=== PATIENT | female | born 1985 | race Hispanic/Latino ===

== ENCOUNTER 2023-02-14 00:24 | Emergency (ER) | payer SELFPAY ==
--- OUTSIDE RECORDS SUMMARY | 2023-02-14 00:29 | XMS REPORT | Continuity of Care Document ---
:[address] [facility] t Address [address] [facility]. [address] [place] [address] Care Team Providers Name Role Phone Pcp, Patient Does Not Have A Primary Care Physician [phone] LEONARD NAIDU Attending Clinician Unavailable Leonard Naidu MD Attending Clinician BRAD Attending Clinician Unavailable DEBBI SULTANA Attending Clinician Unavailable Debbi Michael Attending Clinician Doctor Unassigned, [place] Attending Clinician Unavailable Pcp, Patient Does Not Have A Attending Clinician [phone] Marianela Green RN Attending Clinician Unavailable True Onofre Attending Clinician TRUE RAMOS Attending Clinician Unavailable Raza Attending Clinician Unavailable BRAD Admitting Clinician Unavailable DEBBI SULTANA Admitting Clinician Unavailable Raza Admitting Clinician Unavailable Payers Payer Name Policy Type Policy Number Effective Date Expiration Date Matthias restrepo OOHLALA Mobile [id number] 2021 NON-CONTRACT 00:00:00 GENERIC [employer] - HEALTHGRAM [id number] 1989 (PPO) 00:00:00 [facility] [id number] 2019 NON-CONTRACT 00:00:00 Problems Condition Condition Condition Status Onset Resolution Last Treating Co mments Source Name Details Category Date Date Treatment Clinician Date 21 weeks 21 weeks Disease Active 2015-08 Unive rs gestation gestation 0-28 ity of of of 00:00: [place] 00 Medi vito Branch Vaginal Vaginal Disease Active 2015-08 Univers bleeding bleeding 0-28 ity of in in 00:00: [place] , , 00 Me dical second second Branch trimester trimester Cramping Cramping Disease Active 2015-08 Unive rs complicati complicati 0-28 it y of ng ng 00:00: [place] , , 00 Me dical antepartum antepartum Br anch Allergies, Adverse Reactions, Alerts Allergy Allergy Status Severity Reaction(s) Onset Inactive Treating Comm ents Source Name Type Date Date Clinician NO KNOWN Drug Active Univers ALLERGIE Class ity of S [facility] Albutero Allergy Active Severe Angioedema Mat matthias bolden to da substanc [facility] Social History Social Habit Start Date Stop Date Quantity Comments Source Exposure to Not sure [facility] SARS-CoV-2 (event) Medica l Branch Sex Assigned At [birth year] [facility] 00:00:00 00:00:00 Medical Branch Smoking Status Start Date Stop Date Source Never Smoker Diane [facility] Tobacco smoking consumption [facility] Medical unknown Branch Medications Ordered Filled Start Stop Current Ordering Indication Dosage Frequency Signature Comments Components Source Medication Medication Date Date Medication? Clinician (SIG) Name Name iopamidol 2022- No [id number] 75mL 75 mL, U nivers (ISOVUE 02-12 Intravenou ity o f 370-500 mL) 03:45: 02:53 s, ONCE, 1 [place] injection 00 :00 dose, On Medica l 75 mL Thu02/11/23 Branch at 2245, Routine NaCl 0.9% 2022- No 1000mL at 999 Uni vers (NS) bolus 02-12 mL/hr, ity of infusion 02:45: 03:49 1,000 mL, [place] as 1,000 mL 00 :00 IV Medical Piggyback, Branch ONCE, 1 dose, On Thu02/11/23 at 2145, STAT ketorolac 2022- No 30mg 30 mg, Unive rs (TORADOL) 02-12 Slow IV ity of injection 02:45: 03:14 Push, [place] 30 mg 00 :00 ONCE, 1 Medical dose, On Branch Thu02/11/23 at 2145 ondansetron No 4mg 4 mg, Slow Univers (ZOFRAN 02-12 IV Push, ity of (PF)) 02:00: 03:14 ONCE, 1 [place] injection 4 00 :00 dose, On Medi vito mg Thu02/11/23 Branch at 2100, RYAN morpHINE (4 2022- No 4mg 4 mg, Slow Univers mg/mL) 02-12 IV Push, ity of injection 4 02:00: 03:16 [place]CE, 1 [place] mg 00 :[place] dose, On Thu02/11/23 Branch at 2100, STAT famotidine Yes [id number] 20mg Take 1 U nivers (PEPCID) 20 7-05 tablet by ity of mg tablet 00:00: mouth in s 00 the Medical morning Branch and 1 tablet in the evening. dicyclomine Yes [id number] 20mg Take 1 Univers 20 mg 7-05 tablet by ity of tablet 00:00: mouth 3 [place] 00 (three) Medical times Branch daily as needed for Abdominal pain. aspirin 2021- No 325mg 325 mg, Unive rs tablet 325 09-26-17 Oral, ity of mg 01:45: 00:50 ONCE, 1 [place] 00 :00 dose, On Medical Wed Branch 09/25/21 at 1945, STAT naproxen Yes [id number] 500mg Take 1 Un nitza (NAPROSYN) 2-16 tablet by ity of 500 mg 00:00: mouth 2 [place] tablet 00 (two) Medical times Branch daily with meals. naproxen 0 Yes [id number] 500mg Take 1 Un nitza (NAPROSYN) 2-16 tablet by ity of 500 mg 00:00: mouth 2 [place] tablet 00 (two) Medical times Branch daily with meals. iopamidol 2020-08- No [id number] 120mL 120 mL, Univers (ISOVUE 08-17 11-08 Intravenou ity o f 370-500 mL) 17:34: 17:34 s, ONCE, 1 [place] injection 00 :00 dose, On Medica l 120 mL [facility] 06/17/21 at 1145, Routine hyoscyamine 2020-08 No .125mg 0.125 mg, Univers sulfate 08-1708 Sublingual ity o f (LEVSIN/SL) 17:30: 16:28 , ONCE, 1 [place] sublingual 00 :00 dose, On Medic al tablet Mon Branch 0.125 mg 06/17/21 at 1130, Routine ondansetron 2020-08- No 4mg 4 mg, Slow Univers (ZOFRAN 08-17 IV Push, ity of (PF)) 17:30: 16:30 ONCE, 1 [place] injection 4 00 :00 dose, On Medi vito mg [facility] 06/17/21 at 1130, RYAN hyoscyamine 2020-08 Yes [id number] .125mg Take 1 Univers 0.125 mg 1-08 tablet by ity of tablet 00:00: mouth [place] 00 every 6 Medical (six) Branch hours as needed (abdominal pain). ondansetron 2020-08 Yes 4mg Take 1 Univers (ZOFRAN 1-08 tablet by ity of ODT) 4 mg 00:00: mouth [place] disintegrat 00 every 8 Medic al ing tablet (eight) Branch hours as needed for Nausea and Vomiting (N/V). esomeprazol 2020-08 Yes 20mg Take 20 mg Univers e (NEXIUM) 1-08 by mouth ity o f 20 mg 00:00: daily [place] capsule 00 before a Medical meal. Branch hyoscyamine 2020-08 Yes [id number] .125mg Take 1 Univers 0.125 mg 1-08 tablet by ity of tablet 00:00: mouth [place] 00 every 6 Medical (six) Branch hours as needed (abdominal pain). ondansetron 2020-08 Yes [id number] 4mg Take 1 Univers (ZOFRAN 1-08 tablet by ity of ODT) 4 mg 00:00: mouth [place] disintegrat 00 every 8 Medic al ing tablet (eight) Branch hours as needed for Nausea and Vomiting (N/V). esomeprazol 2020-08 Yes 20mg Take 20 mg Univers e (NEXIUM) 1-08 by mouth ity o f 20 mg 00:00: daily [place] capsule 00 before a Medical meal. Branch hyoscyamine 2020-08 Yes .125mg Take 1 Univers 0.125 mg 1-08 tablet by ity of tablet 00:00: mouth [place] 00 every 6 Medical (six) Branch hours as needed (abdominal pain). ondansetron 2020-08 Yes 4mg Take 1 Univers (ZOFRAN 1-08 tablet by ity of ODT) 4 mg 00:00: mouth [place] disintegrat 00 every 8 Medic al ing tablet (eight) Branch hours as needed for Nausea and Vomiting (N/V). esomeprazol 2020-08 Yes 20mg Take 20 mg Univers e (NEXIUM) 1-08 by mouth ity o f 20 mg 00:00: daily [place] capsule 00 before a Medical meal. Branch iohexol 2019-08- No 120mL 120 mL, Unive rs (OMNIPAQUE 0-30 10-31 Intravenou it y of 350 23:54: 00:00 s, ONCE, 1 [place] BULK-150 00 :00 dose, Fri Medica l mL) 06/08/20 Branch injection at 1900, 120 mL Routine pantoprazol 2019-08- No 40mg 40 mg, IV Univers e 0-30 10-30 Piggyback, ity of (PROTONIX) 23:30: 23:36 ONCE, 1 [place] as 40 mg in 00 :00 dose, Fri Medica l NaCl 0.9% 06/08/20 Branch (NS) 100 mL at 1830, MINI-BAG 100 mL maalox:diph 2019-08- No 15mL 15 mL, Uni vers enhydrAMINE 0-30 10-30 Oral, ity of :lidocaine 23:30: 23:21 ONCE, 1 [place] as 2 % viscous 00 :00 dose, Fri Med ical 1:1:1 06/08/20 Branch (FIRST-MOUT at 1830, [facility]) Routine oral suspension 15 mL NaCl 0.9% 2019-08- No 1000mL at 999 Uni vers (NS) bolus 0-30 10-31 mL/hr, ity of infusion 22:30: 00:16 1,000 mL, [place] as 1,000 mL 00 :00 IV Medical Infusion, Branch ONCE, 1 dose, 10/30/20 at 1730, RYAN pantoprazol 2019-08 2020- No [id number] 40mg Take 1 Univers e 0-30 11-30 tablet by ity of (PROTONIX) 00:00: 05:59 mouth [place] 40 mg EC 00 :00 daily for Medica l tablet 30 days. Branch pantoprazol 2019-08 2020- No [id number] 40mg Take 1 Univers e 0-30 11-30 tablet by ity of (PROTONIX) 00:00: 05:59 mouth [place] 40 mg EC 00 :00 daily for Medica l tablet 30 days. Branch pantoprazol 2019-08 2020- No [id number] 40mg Take 1 Univers e 0-30 11-30 tablet by ity of (PROTONIX) 00:00: 05:59 mouth [place] 40 mg EC 00 :00 daily for Medica l tablet 30 days. Branch azithromyci 2019-08 2020- No [id number] 500mg Take 1 Univers n 500 mg 0-30 11-07 tablet by ity o f tablet 00:00: 05:59 mouth [place] 00 :00 daily for Medical 7 days. Branch azithromyci 2019-08 2020- No [id number] 500mg Take 1 Univers n 500 mg 0-30 11-07 tablet by ity o f tablet 00:00: 05:59 mouth [place] 00 :00 daily for Medical 7 days. Branch azithromyci 2019-08 2020- No [id number] 500mg Take 1 Univers n 500 mg 0-30 11-07 tablet by ity o f tablet 00:00: 05:59 mouth [place] 00 :00 daily for Medical 7 days. Branch GLYBURIDE Yes 1 Tab Oral Un nitza 2.5 MG ORAL 7-22 QAM WITH ity of TAB 00:00: BREAKFAST [place] Medical Branch GLYBURIDE 2007- Yes 1 Tab Oral Un nitza 2.5 MG ORAL 7-22 QAM WITH ity of TAB 00:00: BREAKFAST [place] [facility] GLYBURIDE 2007- Yes 1 Tab Oral Un nitza 2.5 MG ORAL 7-22 QAM WITH ity of TAB 00:00: BREAKFAST Medical Branch GLYBURIDE 2007- Yes 1 Tab Oral Un nitza 2.5 MG ORAL 7-22 QAM WITH ity of TAB 00:00: BREAKFAST [place] [facility] GLYBURIDE Yes 1 Tab Oral Un nitza 2.5 MG ORAL 7-22 QAM WITH ity of TAB 00:00: BREAKFAST Medical Branch GLYBURIDE Yes 1 Tab Oral Un nitza 2.5 MG ORAL 7-22 QAM WITH ity of TAB 00:00: BREAKFAST Medical Branch GLYBURIDE Yes 1 Tab Oral Un nitza 2.5 MG ORAL 7-22 QAM WITH ity of TAB 00:00: BREAKFAST [facility] amoxicillin amoxicillin No 1capsul Q12H amoxicilli [place] 500 mg 500 mg e(s) n 500 mg da capsule capsule capsule [facility] p Take 1 Take 1 Take 1 al capsule capsule capsule Health every 12 every 12 every 12 Out reac hours by hours by hours by h oral route oral route oral route Program for 10 for 10 for 10 days. days. days. Vital Signs Vital Name Observation Time Observation Value Comments Source Systolic blood 2023-02-12 03:12:00 134 mm[Hg] [facility]iver [facility] Diastolic blood 2023-02-12 03:12:00 81 [facility]Hg[facility] 2023-02-12 03:12:00 52 /min [facility] Oxygen saturation in 2023-02-12 03:12:00 100 /min [facility] Arterial blood by [facility] Pulse oximetry [place] Respiratory rate 2023-02-12 01:30:00 16 /min [facility] Body temperature 2023-02-11 23:33:00 36.78 [facility] Body height 2023-02-11 23:33:00 149.9 cm [facility] Body weight 2023-02-11 23:33:00 66.225 kg [facility] BMI 2023-02-11 23:33:00 29.49 kg/m2 [facility] Systolic blood 2021-09-26 02:00:00 129 mm[Hg] [facility]iver [facility] Diastolic blood 2021-09-26 02:00:00 94 mm[Hg] Unive rs[facility] Heart rate 2021-09-26 02:00:00 80 /min [facility] [place] [facility] Oxygen saturation in 2021-09-26 02:00:00 92 /min University of Arterial blood by [employer] Pulse oximetry Branch Respiratory rate 2021-09-26 01:00:00 12 /min Univ [facility] [place] [facility] Body temperature 2021-09-26 00:27:00 36.78 [facility] [place] [facility] Body height 2021-09-26 00:27:00 149.9 cm [facility] [place] [facility] Body weight 2021-09-26 00:27:00 63.504 kg [facility] [place] [facility] BMI 2021-09-26 00:27:00 28.28 kg/m2 [facility] [place] [facility] Systolic blood 2021-06-17 18:37:38 122 mm[Hg] Univer sity of pressure [place] [facility] Diastolic blood 2021-06-17 18:37:38 66 mm[Hg] Unive rsity of pressure [place] [facility] Heart rate 2021-06-17 18:37:38 62 /min [facility] [place] [facility] Respiratory rate 2021-06-17 18:37:38 16 /min Univ [facility] [place] [facility] Oxygen saturation in 2021-06-17 18:37:38 100 /min University of Arterial blood by [employer] Pulse oximetry Branch Body temperature 2021-06-17 16:10:03 37.33 [place] [facility] [place] [facility] Body height 2021-06-17 15:56:00 149.9 cm [facility] [place] [facility] Body weight 2021-06-17 15:56:00 63.504 kg [facility] [place] [facility] BMI 2021-06-17 15:56:00 28.28 kg/m2 [facility] [place] [facility] Systolic blood 2020-06-09 01:31:00 146 mm[Hg] Univer sity of pressure [place] [facility] Diastolic blood 2020-06-09 01:31:00 88 mm[Hg] Unive rsity of pressure [place] [facility] Heart rate 2020-06-09 01:31:00 83 /min [facility] [place] [facility] Respiratory rate 2020-06-09 01:31:00 16 /min Univ [facility] [place] [facility] Oxygen saturation in 2020-06-09 01:31:00 97 /min University of Arterial blood by [facility] Pulse oximetry Branch Body temperature 2020-06-08 21:42:00 37.39 [facility] Body height 2020-06-08 21:42:00 149.9 cm [facility] Body weight 2020-06-08 21:42:00 69.4 kg [facility] BMI 2020-06-08 21:42:00 30.90 kg/m2 [facility] BP Diastolic 2019-10-19 00:00:00 76 mm[Hg] [place] [facility] Height 2019-10-19 00:00:00 59 [in_i] [place] [facility] BMI (Body Mass 2019-10-19 00:00:00 30.7 kg/m2 [facility] 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 METABOLIC PANEL 2023-02-12 01:20:00 Leonard Naidu [facility] ([id number]) [facility] CBC WITH DIFF 2023-02-12 01:20:00 Leonard Naidu [facility] URINALYSIS 2023-02-12 01:20:00 Leonard Naidu [facility] CONSENT/REFUSAL FOR 2023-02-11 23:34:41 Doctor Unassigned, No Un [facility] DIAGNOSIS AND Name [facility] Branch TREATMENT XR CHEST 1 VW 2021-09-26 00:59:30 Debbi Sultana [facility] POCT TEST 2021-09-26 00:55:00 Debbi Sultana [facility] TROPONIN I 2021-09-26 00:48:00 Debbi Sultana [place] [facility] COMP. METABOLIC PANEL 2021-09-26 00:48:00 Debbi Sultana [facility] ([id number]) Medical Branch CBC WITH DIFF 2021-09-26 00:48:00 Debbi Sultana [place] [facility] NOTICE OF PRIVACY 2021-09-26 00:16:46 Doctor Unassigned, No [facility] CONSENT/REFUSAL FOR 2021-09-26 00:16:29 Doctor Unassigned, No Un [facility] [place] DIAGNOSIS AND [facility] TREATMENT CT ABDOMEN PELVIS W 2021-06-17 16:40:44 Debbi Sultana [facility] CONTRAST [facility] POCT TEST 2021-06-17 16:01:00 Noemi Wasserman [facility] LIPASE 2021-06-17 15:58:00 Noemi Wasserman [facility] COMP. METABOLIC PANEL 2021-06-17 15:58:00 Noemi Wasserman [facility] ([id number]) Medical Branch CBC WITH DIFF 2021-06-17 15:58:00 Noemi Wasserman [facility] URINALYSIS 2021-06-17 15:58:00 Noemi Wasserman [facility] CONSENT/REFUSAL FOR 2021-06-17 15:48:05 Doctor Unassigned, No Un [facility] [place] DIAGNOSIS AND [facility] Medical Branch TREATMENT NOTICE OF PRIVACY 2021-06-17 15:47:30 Doctor Unassigned, No [facility]EL[facility] W 2020-06-08 23:57:50 True Ramos [facility] CONTRAST [facility] POCT TEST 2020-06-08 23:22:00 True Ramos [facility] URINALYSIS 2020-06-08 23:17:00 True Ramos [facility] LIPASE 2020-06-08 23:10:00 True Ramos [facility] COMP. METABOLIC PANEL 2020-06-08 23:10:00 True Ramos [facility] [place] ([id number] CBC WITH DIFF 2020-06-08 23:10:00 True Ramos [facility] Plan of Care Planned Activity Planned Date Details Comments Source Diagnostic Test 2019-10-19 [facility] [place] [facility] Pending 00:00:00 A, throat [code = Health Out reach rapid strep group Program A, throat] Encounters Start End Encounter Admission Attending Care Care Encounter Source Date/Time Date/Time Type Type Clinicians Facility Department ID 2023-02-11 2023-02-11 Emergency X [facility] ERT [id number] Univers 18:35:00 22:58:00 LEONARD [facility] 2023-02-11 2023-02-11 [facility] [id number] Univers 18:35:00 22:58:00 Leonard STEVEN [id number] i ty [facility] [id number] [facility] [id number] [address] 2022-11-27 2022-11-27 Out[facility] 782 [place] 00:00:00 00:00:00 HANA 0420 [facility] 2021-09-25 2021-09-25 Emergency [facility] [id number] Univers 18:30:00 20:37:[facility] 2021-09-25 2021-09-25 [facility] [id number] Univers 18:30:00 20:37:00 Debbi STEVEN [id number] i ty of [place] 4.2.7.2.686 [facility] [id number] [address] 2021-06-17 2021-06-17 Emergency [facility] ERT [id number] Univers 10:09:00 13:37:00 DEBBI [facility] 2021-06-17 2021-06-17 Emergency [facility] [id number] Univers 10:09:00 13:37:00 Debbi ADAMSJESIKA 350.1.13.10 i ty of [place] 4.2.7.2.686 [facility] [id number] [address] 2021-06-17 2021-06-17 Orders Doctor MIKA [id number] Univers 00:00:00 00:00:00 Only Unassigned, [place] 350.1.13.10 ity of [place] [facility] 4.2.7.2.686 [place] as [id number] [address] 2020-06-11 2020-06-11 Telephone Pcp, MIKA [id number] Univers 00:00:00 00:00:00 Patient [place] 350.1.13.10 it y of Does Not HOSPITAL 4[place]7.2.686 [place] [id number] [address] 2020-06-10 2020-06-10 Letter MIKA Green [id number] Univers 00:00:00 00:00:00 (Out) Marianela Ng [place] 350.1.13.10 it y of HOSPITAL 4.2.7.2.686 [place] as [id number] [address] 2020-06-08 2020-06-08 Emergency [facility] [id number] Univers 16:44:00 20:33:00 True Steven 350.1.13.10 ity of [place] 4.2.7.2.686 [facility] [id number] [address] 2020-06-08 2020-06-08 Emergency X [facility] ERT [id number] Univers 16:44:00 16:44:00 TRUE francois of [facility] 2019-10-19 2019-10-19 Outpatient Lauren REYES [id number] [place] 08:24:00 08:24:00 dquist 0311 da [facility] 2019-10-19 2019-10-19 Dilshad REYES [place] - [id number] [place] 00:00:00 00:00:00 Obsarah, [place] MEDICAL INSURANCE COLLECTOR: 1700 [facility] WIKADY [place], [facility] [phone] h , Ph. Program Results Test Description Test Time Test Comments Results Result Comments Source TEST, SERUM 2023-02-12 02:17:59 Test Item Value Reference Range Interpretation Comme nts PREG SERUM (test code = 5763874287) Negative ALE (test code = ALE) Less than 10 IU/L. ?If low titer or ectopic is suspected, resubmit specimen in 48-72 hours. [facility] [place] [facility]. METABOLIC PANEL (12853)2023-02-12 02:04:08 Test Item Value Reference Range Interpretation Comments NA (test code = 141 mmol/L 135-145 8872202633) K (test code = 3.6 mmol/L 3.5-5.0 5153868429) CL (test code = 101 mmol/L 98-108 6098293967) CO2 TOTAL (test code = 31 mmol/L 23-31 2802420054) AGAP (test code = 9 2-16 9281039249) BUN (test code = 7 mg/dL 7-23 1891461374) GLUCOSE (test code = 155 mg/dL 70-110 H 2621987125) CREATININE (test code = 0.64 mg/dL 0.50-1.04 8733842467) TOTAL BILI (test code = 1.0 mg/dL 0.1-1.8 0786282238) CALCIUM (test code = 9.1 mg/dL 8.6-10.6 4282443259) T PROTEIN (test code = 7.6 g/dL 6.3-8.2 6171606904) ALBUMIN (test code = 4.3 g/dL 3.5-5.0 4565783981) ALK PHOS (test code = 85 U/L 34-122 2849507387) ALTv (test code = 29 U/L 5-35 1742-6) AST(SGOT) (test code = 22 U/L 13-40 1074148234) eGFR (test code = 104.4 mL/min/1.73m2 7556201608) ALE (test code = ALE) Association of Glomerular Filtration Rate (GFR) and Staging of Kidney Disease* + --+ --+ ------+| GFR (mL/min/1.73 m2) ?| With Kidney Damage ?| ?Without Kidney Damage+ --------+ --------+ +| ?>90 ?| ?Stage one ?| ? Normal ?+ ---+ ---+ -------+| ?60-89 ?| ?Stage two ?| ? Decreased GFR ? + --+ --+ ------+| ?30-59 ?| ?Stage three ?| ? Stage three ? + --+ --+ ------+| ?15-29 ?| ?Stage four ? | ? Stage four ?+ ---+ ---+ -------+| ?<15 (or dialysis) ? ?| ?Stage five ? | ? Stage five ?+ ---+ ---+ -------+ *Each stage assumes the associated GFR level has been in effect for at least three months. ?Stages 1 to 5, with or without kidney disease, indicate chronic kidney disease. Notes: Determination of stages one and two (with eGFR >59mL/min/1.73 m2) requires estimation of kidney damage for at least three months as defined by structural or functional abnormalities of the kidney, manifested by either:Pathological abnormalities or Markers of kidney damage (including abnormalities in the composition of the blood or urine or abnormalities in imaging tests). Lab Interpretation Abnormal (test code = 50738-6) [facility]:03[facility]48 Test Item Value Reference Range Interpretation Comments LIPASE (test code = 8827071360) 136 U/L 0-220 Lab Interpretation (test code = Normal 80332-7) [facility] WITH [id number] 01:51:09 Test Item Value Reference Range Interpretation Comments WBC (test code = 10.21 See_Comment [Automated 7479-2) message] The sy stem which generated this result transmitted reference range : 4.30 - 11.10 10*3/?L. The reference range was not used to interpret this result as normal/abnormal . RBC (test code = 4.30 See_Comment [Automated 222-5) message] The sy stem which generated this result transmitted reference range : 3.93 - 5.25 10*6/?L. The reference range was not used to interpret this result as normal/abnormal . HGB (test code = 13.1 g/dL 11.6-15.0 718-7) HCT (test code = 39.2 % 35.7-45.2 4544-3) MCV (test code = 91.2 fL 80.6-95.5 787-2) MCH (test code = 30.5 pg 25.9-32.8 785-6) MCHC (test code = 33.4 g/dL 31.6-35.1 786-4) RDW-SD (test code = 45.1 fL 39.0-49.9 23972-5) RDW-CV (test code = 13.6 % 12.0-15.5 788-0) PLT (test code = 378 See_Comment H [Automated 777-3) message] The sy stem which generated this result transmitted reference range : 166 - 358 10*3/ ?L. The reference r anuradha was not used to interpret this result as normal/abnormal . MPV (test code = 10.3 fL 9.5-12.9 98716-3) NRBC/100 WBC (test 0.0 See_Comment [Automat ed code = 2050154977) message] The system which generated this result transmitted reference range : 0.0 - 10.0 /100 WBCs. The refer ence range was not u sed to interpret th is result as normal/abnormal . NRBC x10^3 (test code See_Comment [Auto mated = 2953966079) message] The s ystem which generated this result transmitted reference range : 10*3/?L. The reference range was not used to interpret this result as normal/abnormal . GRAN MAT (NEUT) % 59.8 % (test code = 770-8) IMM GRAN % (test code 0.50 % = 6415421281) LYMPH % (test code = 29.5 % 736-9) MONO % (test code = 7.1 % 5905-5) EOS % (test code = 2.5 % 713-8) BASO % (test code = 0.6 % 706-2) GRAN MAT x10^3(ANC) 6.11 10*3/uL 1.88-7.09 (test code = 1044671866) IMM GRAN x10^3 (test 0.05 10*3/uL 0.00-0.06 code = 8595656346) LYMPH x10^3 (test code 3.01 10*3/uL 1.32-3.29 = 731-0) MONO x10^3 (test code 0.72 10*3/uL 0.33-0.92 = 742-7) EOS x10^3 (test code = 0.26 10*3/uL 0.03-0.39 711-2) BASO x10^3 (test code 0.06 10*3/uL 0.01-0.07 = 704-7) Lab Interpretation Abnormal (test code = 81249-7) [facility] [id number] 01:34:48 Test Item Value Reference Interpretation Comments Range TROPONIN I (test 0.001 ng/mL See_Comment [Automated code = 8327591622) message] The system which generated this result transmitted reference range : <=0.034. The reference range was not used to interpret this result as normal/abnormal . ALE (test code = Reference (Normal) ALE) Range (defined by the 99th percentile reference limit): <= 0.034 ng/mL Note: Cardiac troponin begins to rise 3-4 hours after the onset of ischemia. Repeat in 4-6 hours if the sample was drawn within 3-4 hours of the onset of the symptom and found normal. Diagnosis of myocardial injury is made with acute changes in cTn concentrations with at least one serial sample above the 99th percentile upper reference limit (URL), taken together with the patient's clinical presentation. Biotin has been reported to cause a negative bias, interpret results relative to patient's use of biotin. Lab Interpretation Normal (test code = 00787-0) [facility]. METABOLIC PANEL ([id number])2021-09-26 01:24:24 Test Item Value Reference Range Interpretation Comments NA (test code = 143 mmol/L 135-145 4167251539) K (test code = 4.2 mmol/L 3.5-5.0 0861703659) CL (test code = 109 mmol/L 98-108 H 7818045715) CO2 TOTAL (test code = 28 mmol/L 23-31 3266536385) AGAP (test code = 2-16 4824141357) BUN (test code = 17 mg/dL 7-23 6421069834) GLUCOSE (test code = 140 mg/dL 70-110 H 2452813801) CREATININE (test code = 0.89 mg/dL 0.50-1.04 8886841343) TOTAL BILI (test code = 0.6 mg/dL 0.1-1.8 7224327016) CALCIUM (test code = 9.0 mg/dL 8.6-10.6 2603101238) T PROTEIN (test code = 8.1 g/dL 6.3-8.2 3883776207) ALBUMIN (test code = 4.7 g/dL 3.5-5.0 6787614372) ALK PHOS (test code = 82 U/L 34-122 9568794544) ALTv (test code = 20 U/L 5-35 1742-6) AST(SGOT) (test code = 21 U/L 13-40 3685381475) eGFR (test code = mL/min/1.73m2 8611133258) ALE (test code = ALE) Association of Glomerular Filtration Rate (GFR) and Staging of Kidney Disease* + --+ --+ ------+| GFR (mL/min/1.73 m2) ?| With Kidney Damage ?| ?Without Kidney Damage+ --------+ --------+ +| ?>90 ?| ?Stage one ?| ? Normal ?+ ---+ ---+ -------+| ?60-89 ?| ?Stage two ?| ? Decreased GFR ? + --+ --+ ------+| ?30-59 ?| ?Stage three ?| ? Stage three ? + --+ --+ ------+| ?15-29 ?| ?Stage four ? | ? Stage four ?+ ---+ ---+ -------+| ?<15 (or dialysis) ? ?| ?Stage five ? | ? Stage five ?+ ---+ ---+ -------+ *Each stage assumes the associated GFR level has been in effect for at least three months. ?Stages 1 to 5, with or without kidney disease, indicate chronic kidney disease. Notes: Determination of stages one and two (with eGFR >59mL/min/1.73 m2) requires estimation of kidney damage for at least three months as defined by structural or functional abnormalities of the kidney, manifested by either:Pathological abnormalities or Markers of kidney damage (including abnormalities in the composition of the blood or urine or abnormalities in imaging tests). Lab Interpretation Abnormal (test code = 08162-0) [facility] WITH [id number] 00:55:37 Test Item Value Reference Range Interpretation Comments WBC (test code = See_Comment [Automated 9090-2) message] The sy stem which generated this result transmitted reference range : 4.30 - 11.10 10*3/?L. The reference range was not used to interpret this result as normal/abnormal . RBC (test code = See_Comment [Automated 789-8) message] The sy stem which generated this result transmitted reference range : 3.93 - 5.25 10*6/?L. The reference range was not used to interpret this result as normal/abnormal . HGB (test code = 13.0 g/dL 11.6-15.0 718-7) HCT (test code = 39.0 % 35.7-45.2 4544-3) MCV (test code = 90.9 fL 80.6-95.5 787-2) MCH (test code = 30.3 pg 25.9-32.8 785-6) MCHC (test code = 33.3 g/dL 31.6-35.1 786-4) RDW-SD (test code = 45.5 fL 39.0-49.9 15176-4) RDW-CV (test code = 13.5 % 12.0-15.5 788-0) PLT (test code = See_Comment H [Automated 777-3) message] The sy stem which generated this result transmitted reference range : 166 - 358 10*3/ ?L. The reference r anuradha was not used to interpret this result as normal/abnormal . MPV (test code = 10.4 fL 9.5-12.9 98042-9) NRBC/100 WBC (test See_Comment [Automat ed code = 3693583785) message] The system which generated this result transmitted reference range : 0.0 - 10.0 /100 WBCs. The refer ence range was not u sed to interpret th is result as normal/abnormal . NRBC x10^3 (test code <0.01 See_Comment [Auto mated = 5938199394) message] The s ystem which generated this result transmitted reference range : 10*3/?L. The reference range was not used to interpret this result as normal/abnormal . GRAN MAT (NEUT) % 63.2 % (test code = 770-8) IMM GRAN % (test code 0.40 % = 1118067788) LYMPH % (test code = 27.2 % 736-9) MONO % (test code = 6.6 % 5905-5) EOS % (test code = 2.2 % 713-8) BASO % (test code = 0.4 % 706-2) GRAN MAT x10^3(ANC) 6.14 10*3/uL 1.88-7.09 (test code = 0081188318) IMM GRAN x10^3 (test 0.04 10*3/uL 0.00-0.06 code = 3130389379) LYMPH x10^3 (test code 2.64 10*3/uL 1.32-3.29 = 731-0) MONO x10^3 (test code 0.64 10*3/uL 0.33-0.92 = 742-7) EOS x10^3 (test code = 0.21 10*3/uL 0.03-0.39 711-2) BASO x10^3 (test code 0.04 10*3/uL 0.01-0.07 = 704-7) Lab Interpretation Abnormal (test code = 53014-3) [facility] [id number] 00:55:00 Test Item Value Reference Range Interpretation Comments POCT PREG (test code = 1605) negative On board controls acceptable with present C Line (test code = 3574) POCT PREG LOT # (test code = 3575) [id number] POCT PREG TEST DATE (test 10/07/2022 code = 3576) Lab Interpretation (test code = Normal 88869-2) [facility] HoustonComplete Metabolic [id number] 16:34:15 Test Item Value Reference Range Interpretation Comments NA (test code = 139 mmol/L 135-145 4540444831) K (test code = 4.1 mmol/L 3.5-5.0 1396407427) CL (test code = 106 mmol/L 98-108 9814908033) CO2 TOTAL (test code = 26 mmol/L 23-31 7553477724) AGAP (test code = 2-16 5275388789) BUN (test code = 15 mg/dL 7-23 7276395659) GLUCOSE (test code = 147 mg/dL 70-110 H 0467597034) CREATININE (test code = 0.74 mg/dL 0.50-1.04 4457632295) TOTAL BILI (test code = 0.6 mg/dL 0.1-1.2 9752512578) CALCIUM (test code = 9.5 mg/dL 8.6-10.6 8970802639) T PROTEIN (test code = 7.6 g/dL 6.3-8.2 2925489429) ALBUMIN (test code = 4.2 g/dL 3.5-5.0 3331945911) ALK PHOS (test code = 86 U/L 34-122 9826349632) ALTv (test code = 18 U/L 5-35 1742-6) AST(SGOT) (test code = 17 U/L 13-40 6877614282) eGFR (test code = mL/min/1.73m2 0077969531) ALE (test code = ALE) Association of Glomerular Filtration Rate (GFR) and Staging of Kidney Disease* + --+ --+ ------+| GFR (mL/min/1.73 m2) ?| With Kidney Damage ?| ?Without Kidney Damage+ --------+ --------+ +| ?>90 ?| ?Stage one ?| ? Normal ?+ ---+ ---+ -------+| ?60-89 ?| ?Stage two ?| ? Decreased GFR ? + --+ --+ ------+| ?30-59 ?| ?Stage three ?| ? Stage three ? + --+ --+ ------+| ?15-29 ?| ?Stage four ? | ? Stage four ?+ ---+ ---+ -------+| ?<15 (or dialysis) ? ?| ?Stage five ? | ? Stage five ?+ ---+ ---+ -------+ *Each stage assumes the associated GFR level has been in effect for at least three months. ?Stages 1 to 5, with or without kidney disease, indicate chronic kidney disease. Notes: Determination of stages one and two (with eGFR >59mL/min/1.73 m2) requires estimation of kidney damage for at least three months as defined by structural or functional abnormalities of the kidney, manifested by either:Pathological abnormalities or Markers of kidney damage (including abnormalities in the composition of the blood or urine or abnormalities in imaging tests). Lab Interpretation Abnormal (test code = 29060-3) [facility] HoustonLipase, [id number] 16:33:54 Test Item Value Reference Range Interpretation Comments LIPASE (test code = 5139636733) 135 U/L 0-220 Lab Interpretation (test code = Normal 71301-1) [facility] HoustonCBC with [id number] 16:20:36 Test Item Value Reference Range Interpretation Comments WBC (test code = See_Comment [Automated 4290-2) message] The sy stem which generated this result transmitted reference range : 4.30 - 11.10 10*3/?L. The reference range was not used to interpret this result as normal/abnormal . RBC (test code = See_Comment [Automated 319-8) message] The sy stem which generated this result transmitted reference range : 3.93 - 5.25 10*6/?L. The reference range was not used to interpret this result as normal/abnormal . HGB (test code = 13.0 g/dL 11.6-15.0 718-7) HCT (test code = 39.8 % 35.7-45.2 4544-3) MCV (test code = 92.6 fL 80.6-95.5 787-2) MCH (test code = 30.2 pg 25.9-32.8 785-6) MCHC (test code = 32.7 g/dL 31.6-35.1 786-4) RDW-SD (test code = 46.1 fL 39.0-49.9 23273-1) RDW-CV (test code = 13.5 % 12.0-15.5 788-0) PLT (test code = See_Comment H [Automated 507-3) message] The sy stem which generated this result transmitted reference range : 166 - 358 10*3/ ?L. The reference r anuradha was not used to interpret this result as normal/abnormal . MPV (test code = 10.5 fL 9.5-12.9 31676-7) NRBC/100 WBC (test See_Comment [Automat ed code = 2435386787) message] The system which generated this result transmitted reference range : 0.0 - 10.0 /100 WBCs. The refer ence range was not u sed to interpret th is result as normal/abnormal . NRBC x10^3 (test code <0.01 See_Comment [Auto mated = 6903589430) message] The s ystem which generated this result transmitted reference range : 10*3/?L. The reference range was not used to interpret this result as normal/abnormal . GRAN MAT (NEUT) % 63.8 % (test code = 770-8) IMM GRAN % (test code 0.50 % = 8266815053) LYMPH % (test code = 27.5 % 736-9) MONO % (test code = 5.0 % 5905-5) EOS % (test code = 2.8 % 713-8) BASO % (test code = 0.4 % 706-2) GRAN MAT x10^3(ANC) 5.42 10*3/uL 1.88-7.09 (test code = 1323998111) IMM GRAN x10^3 (test 0.04 10*3/uL 0.00-0.06 code = 7811994554) LYMPH x10^3 (test code 2.33 10*3/uL 1.32-3.29 = 731-0) MONO x10^3 (test code 0.42 10*3/uL 0.33-0.92 = 742-7) EOS x10^3 (test code = 0.24 10*3/uL 0.03-0.39 711-2) BASO x10^3 (test code 0.03 10*3/uL 0.01-0.07 = 704-7) Lab Interpretation Abnormal (test code = 20745-6) [facility] [id number] 16:01:00 Test Item Value Reference Range Interpretation Comments POCT PREG (test code = 1605) negative On board controls acceptable with present C Line (test code = 3574) POCT PREG LOT # (test code = 3575) [id number] POCT PREG TEST DATE (test code = 3576) Lab Interpretation (test code = Normal 60375-2) [facility]BDOMEN PELVIS W [id number] 01:05:57 1. ?Scattered bilateral peripheral nodular groundglass lung opacities,concerning for atypical pneumonia.2. ?No acute abnormality in the abdomen and pelvis. 3. ?Hepatic steatosis. 4. ?A 1 cm enhancing lesion in hepatic segment VIII, may representhemangioma. ?Correlation with prior imaging or further evaluation withmultiphasic hepatic CT on nonemergent basis can be obtained. Preliminary Report Dictated by Resident: Milo Nair ?MD Candelaria., have reviewed this study and agree with theabove report.EXAM: CT ABDOMEN AND PELVIS WITH CONTRAST HISTORY: 34 year old female presents to ?ED for evaluation and treatmentdue to epigastric pain with radiation to her throat. COMPARISON: None. TECHNIQUE AND FINDINGS: Contiguous axial imaging from the level of the lungbases through the proximal thighs was performed after the administration ofintravenous Omnipaque contrast. Coronal and sagittal re constructions wereobtained. ?Auto mA and/or iterative reconstruction were used to reduceradiation dose. FINDINGS: LOWER THORAX: Scattered bilateral groundglass opacities are noted. LIVER: A 1 cm enhancing focus is seen hepatic segment VIII (2:16) mayrepresent hemangioma. Diffuse geographic hypoattenuation of the hepaticparenchyma is seen without architectural distortion suggestive of hepaticsteatosis. Normal contour. GALLBLADDER AND BILIARY TREE: No biliary ductal dilation. ?No gallbladderwall thickening. SPLEEN: No splenomegaly. PANCREAS: No ductal dilation or masses. ADRENAL GLANDS: No adrenal nodules. KIDNEYS: No hydronephrosis, stones, or masses. Anterior orientation of theright kidney. PERITONEUM AND RETROPERITONEUM: No free air or fluid. LYMPH NODES: No lymphadenopathy. GI TRACT: The appendix is unremarkable (2:79). PELVIS/BLADDER: A 2.3 cm left ovarian follicle ?may representhemorrhagic/corpus luteal cyst. VESSELS: Dual right renal arteries are noted. BONES AND SOFT TISSUES: No suspicious lytic or sclerotic bony lesions. [facility], Radiant Results Inft User - 06/08/2020 8:07 PM CDTEXAM: CT ABDOMEN AND PELVIS WITH CONTRASTHISTORY: 34 year old female presents to ?ED for evaluation and treatmentdue to epigastric pain with radiation to her throat. COMPARISON: None.TECHNIQUE AND FINDINGS: Contig uous axial imaging from the level of the lungbases through the proximal thighs was performed after the administration ofintravenous Omnipaque contrast. Coronal and sagittal reconstructions wereobtained. Auto mA and/or iterative reconstruction were used to reduceradiation dose.FINDINGS:LOWER THORAX: Sca ttered bilateral groundglass opacities are noted.LIVER: A 1 cm enhancing focus is seen hepatic segment VIII (2:16) mayrepresent hemangioma. Diffuse geographic hypoattenuation of the hepaticparenchyma is seen without architectural distortion suggestive of hepaticsteatosis. Normal contour.GALLBLADDER AND BILIARY TREE: No biliary ductal dilation. No gallbladderwall thickening.SPLEEN: No splenomegaly.PANCREAS: No ductal dilation or masses.ADRENAL GLANDS: No adrenal nodules.KIDNEYS: No hydronephrosis, stones, or masses. Anterior orientation of theright kidney.PERITONEUM AND RETROPERITONEUM: No free air or fluid.LYMPH NODES: No lymphadenopathy.GI TRACT: The appendix is unremarkable (2:79).PELVIS/BLADDER: A 2.3 cm left ovarian follicle may representhemorrhagic/corpus luteal cyst. VESSELS: Dual right renal arteries are noted.BONES AND SOFT TISSUES: No suspicious lytic or sclerotic bony lesions.IMPRESSION1. Scattered bilateral peripheral nodular groundglass lung opacities,concerning for atypical pneumonia.2. No acute abnormality in the abdomen and pelvis.3. Hepatic steatosis.4. A 1 cm enhancing lesion in hepatic segment VIII, may representhemangioma. Correlation with prior imaging or further evaluation withmultiphasic hepatic CT on nonemergent basis can be obtained.Preliminary Report Dictated by Resident: Cristine Davis, Milo Gaona MD., have reviewed this study and agree with theabove report. [facility]2020-[facility]30 23:41:00 Test Item Value Reference Range Interpretation Comments APPEARANCE (test code = Clear Clear 3754747790) COLOR (test code = Yellow Yellow 6089054975) PH (test code = 4.8-8.0 0724820101) SP GRAVITY (test code = 1.003-1.030 0999416776) GLU U QUAL (test code = 500 mg/dL Normal A 4963012152) BLOOD (test code = Negative Negative 5667909641) KETONES (test code = Negative Negative 9592342983) PROTEIN (test code = Negative Negative 2887-8) UROBILIN (test code = Normal Normal 7945461553) BILIRUBIN (test code = Negative Negative 7213177311) NITRITE (test code = Negative Negative 1127698349) LEUK BRANDON (test code = Negative Negative 1782217553) RBC/HPF (test code = See_Comment [Autom ated message] 2258733440) The system [employer] generated this result transmit gabi reference range : 0 - 3 HPF. The refe rence range was not u sed to interpret th is result as normal/abnormal . WBC/HPF (test code = <1 See_Comment [Autom ated message] 1702144503) The system [employer] generated this result transmit gabi reference range : 0 - 5 HPF. The refe rence range was not u sed to interpret th is result as normal/abnormal . BACTERIA (test code = Negative Negative 1704082380) SQ EPITH (test code = HPF 5067921373) Lab Interpretation (test Abnormal code = 36120-7) [facility]. METABOLIC PANEL (44568)2020-06-08 23:31:00 Test Item Value Reference Range Interpretation Comments NA (test code = 137 mmol/L 135-145 9884695805) K (test code = 3.7 mmol/L 3.5-5 9692823708) CL (test code = 101 mmol/L 98-108 1481840082) CO2 TOTAL (test code = 31 mmol/L 23-31 8163049852) AGAP (test code = 2-16 7314869208) BUN (test code = 12 mg/dL 7-23 5816788023) GLUCOSE (test code = 227 mg/dL 70-110 H 3532001380) CREATININE (test code = 0.64 mg/dL 0.5-1.04 5654041820) TOTAL BILI (test code = 0.5 mg/dL 0.1-1.7 9246893332) CALCIUM (test code = 9.1 mg/dL 8.6-10.6 5731307194) T PROTEIN (test code = 7.4 g/dL 6.3-8.2 4370880971) ALBUMIN (test code = 4.1 g/dL 3.5-5 9099878064) ALK PHOS (test code = 100 U/L 34-122 3189863060) ALTv (test code = 145 U/L 5-35 H 1742-6) AST(SGOT) (test code = 84 U/L 13-40 H 2082619974) eGFR Calculation mL/min/1.73m2 (Non-) (test code = 1554779870) eGFR Calculation mL/min/1.73m2 () (test code = 8008966980) ALE (test code = ALE) Association of Glomerular Filtration Rate (GFR) and Staging of Kidney Disease* + --+ --+ ------+| GFR (mL/min/1.73 m2) ?| With Kidney Damage ?| ?Without Kidney Damage+ --------+ --------+ +| ?>90 ?| ?Stage one ?| ? Normal ?+ ---+ ---+ -------+| ?60-89 ?| ?Stage two ?| ? Decreased GFR ? + --+ --+ ------+| ?30-59 ?| ?Stage three ?| ? Stage three ? + --+ --+ ------+| ?15-29 ?| ?Stage four ? | ? Stage four ?+ ---+ ---+ -------+| ?<15 (or dialysis) ? ?| ?Stage five ? | ? Stage five ?+ ---+ ---+ -------+ *Each stage assumes the associated GFR level has been in effect for at least three months. ?Stages 1 to 5, with or without kidney disease, indicate chronic kidney disease. Notes: Determination of stages one and two (with eGFR >59mL/min/1.73 m2) requires estimation of kidney damage for at least three months as defined by structural or functional abnormalities of the kidney, manifested by either:Pathological abnormalities or Markers of kidney damage (including abnormalities in the composition of the blood or urine or abnormalities in imaging tests). Lab Interpretation Abnormal (test code = 37032-9) [facility]2020[facility] 23:30:00 Test Item Value Reference Range Interpretation Comments LIPASE (test code = 4842314886) 113 U/L 0-220 Lab Interpretation (test code = Normal 36608-9) [facility] WITH [id number] 23:24:00 Test Item Value Reference Range Interpretation Comments WBC (test code = See_Comment [Automated message] 6690-2) The system [employer] generated this result transmitted ref erence range: 4.30 - 1 1.10 10*3/?L. The re ference range was not u sed to interpret this result as normal/abnor mal. RBC (test code = See_Comment [Automated message] 789-8) The system [employer] generated this result transmitted ref erence range: 3.93 - 5 .25 10*6/?L. The re ference range was not u sed to interpret this result as normal/abnor mal. HGB (test code = 12.9 g/dL 11.6-15 718-7) HCT (test code = 37.8 % 35.7-45.2 4544-3) MCV (test code = 90.0 fL 80.6-95.5 787-2) MCH (test code = 30.7 pg 25.9-32.8 785-6) MCHC (test code = 34.1 g/dL 31.6-35.1 786-4) RDW-SD (test code 42.3 fL 39-49.9 = 17934-9) RDW-CV (test code 12.8 % 12-15.5 = 788-0) PLT (test code = See_Comment [Automated message] 937-3) The system [employer] generated this result transmitted ref erence range: 166 - 35 8 10*3/?L. The re ference range was not u sed to interpret this result as normal/abnor mal. MPV (test code = 10.7 fL 9.5-12.9 05348-2) NRBC/100 WBC (test See_Comment [Automat ed message] code = 2861326743) The [employer] which generated this result transmitted ref erence range: 0.0 - 10 .0 /100 WBCs. The refer ence range was not u sed to interpret this result as normal/abnor mal. NRBC x10^3 (test <0.01 See_Comment [Automated message] code = 2475944039) The syste m which generated this result transmitted ref erence range: 10*3/?L. The reference range was not used to interpr et this result as normal/abnormal . GRAN MAT (NEUT) % 61.5 % (test code = 770-8) IMM GRAN % (test 0.30 % code = 2079040756) LYMPH % (test code 27.1 % = 736-9) MONO % (test code 9.0 % = 5905-5) EOS % (test code = 1.8 % 713-8) BASO % (test code 0.3 % = 706-2) GRAN MAT 4.11 10*3/uL 1.88-7.09 x10^3(ANC) (test code = 5033987846) IMM GRAN x10^3 <0.03 0-0.06 (test code = 5492889656) LYMPH x10^3 (test 1.81 10*3/uL 1.32-3.29 code = 731-0) MONO x10^3 (test 0.60 10*3/uL 0.33-0.92 code = 742-7) EOS x10^3 (test 0.12 10*3/uL 0.03-0.39 code = 711-2) BASO x10^3 (test <0.03 0.01-0.07 code = 704-7) [facility] [id number] 23:22:00 Test Item Value Reference Range Interpretation Comments POCT PREG (test code = 1605) Negative On board controls acceptable with Present C Line (test code = 3574) POCT PREG LOT # (test code = HCG [id number]) POCT PREG TEST DATE (test 11/07/2021 code = 3576) Lab Interpretation (test code = Normal 65145-6) [facility]"
[2023-02-14 01:08] LABS: Absolute Lymphocytes (CBC) 2.7 K/uL (0.7-4.9); Hematocrit 34.4 % (36.0-45.0); Lymphocytes % 25.9 % (15.3-44.8); MCV 90.3 fL (80-100); MPV 8.4 fL (7.6-11.3); RBC Red Blood Cell Count 3.81 M/uL (3.86-4.86)
[2023-02-14] MEDS ORDERED: KETOROLAC 30 MG/ML INJ ONE (01:08)
[2023-02-14] MEDS ORDERED: MAGNES/ALUMIN/SIMET 30ML UCUP ONE (01:08)
[2023-02-14] MEDS ORDERED: PANTOPRAZOLE 40 MG INJ ONE (01:08)
[2023-02-14] MEDS ORDERED: NA CHLORIDE 0.9% 50 ML ONE (01:08)
[2023-02-14 01:25] LABS: Albumin 3.3 g/dL (3.4-5.0); Bilirubin Total 0.4 mg/dL (0.2-1.0); Potassium 3.7 mEq/L (3.5-5.1); Protein, Total 7.1 g/dL (6.4-8.2)
[2023-02-14 01:36] LABS: Specific Gravity > 1.030 (1.005-1.030); Urine Bacteria None Seen /HPF (<20); Urine Bilirubin NEGATIVE (Negative); Urine Blood Negative (Negative); Urine Clarity Extremely Turbid (Clear); Urine Color Yellow (Yellow); Urine Glucose 3+ (Negative); Urine Mucus Slight /HPF (None Seen); Urine Protein TRACE (Negative); Urine RBC <5 /HPF (None Seen); Urine Urobilinogen Normal (Normal); Urine WBC Clump Rare /HPF (None Seen); Urine pH 5.5 (5.0-7.0)
--- NOTE | 2023-02-14 02:19 | EDPHYS ---
Physician Documentation [facility] Name: Yanira Sheffield Age: 37 yrs Sex: Female : 1985 Arrival Date: 02/14/2023 Time: 00:24 Bed 15 Private MD: ED Physician Anthony Lala HPI: 02/14 02:24 This 37 yrs old Female presents to ER via EMS with complaints of Abdominal rt Pain. 02:24 Patient presents to the ED with a burning left upper quadrant pain since Thursday. rt Patient was seen on Thursday at [place] [facility] when she was told that she had a negative CT scan was discharged subsequently. She states that the pain is continued, worsening tonight. Is worse after eating. Is nonradiating. Denies nausea, vomiting, diarrhea, urinary symptoms. Denies other acute complaints this time. Symptoms are moderate severity, no other aggravating alleviating factors. 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 - Social history:: Smoking status: Patient denies any tobacco usage or history of. Patient/guardian denies using alcohol. - Family history:: not pertinent, pertinent for. ROS: 02:24 Constitutional: Negative for fever, chills, and weight loss, Cardiovascular: Negative rt for chest pain, palpitations, and edema, Respiratory: Negative for shortness of breath, cough, wheezing, and pleuritic chest pain, MS/Extremity: Negative for injury and deformity, Skin: Negative for injury, rash, and discoloration, Neuro: Negative for headache, weakness, numbness, tingling, and seizure, Psych: Negative for depression, anxiety, suicide ideation, homicidal ideation, and hallucinations. 02:24 Abdomen/GI: Positive for abdominal pain, Negative for nausea, vomiting, and diarrhea. Exam: 02:24 Constitutional: This is a well developed, well nourished patient who is awake, alert, rt and in no acute distress. Head/Face: Normocephalic, atraumatic. Chest/axilla: Normal chest wall appearance and motion. Nontender with no deformity. No lesions are appreciated. Cardiovascular: Regular rate and rhythm with a normal S1 and S2. No gallops, murmurs, or rubs. Normal PMI, no JVD. No pulse deficits. Respiratory: Lungs have equal breath sounds bilaterally, clear to auscultation and percussion. No rales, rhonchi or wheezes noted. No increased work of breathing, no retractions or nasal flaring. Skin: Warm, dry with normal turgor. Normal color with no rashes, no lesions, and no evidence of cellulitis. MS/ Extremity: Pulses equal, no cyanosis. Neurovascular intact. Full, normal range of motion. Neuro: Awake and alert, GCS 15, oriented to person, place, time, and situation. Cranial nerves II-XII grossly intact. Motor strength 5/5 in all extremities. Sensory grossly intact. Cerebellar exam normal. Normal gait. Psych: Awake, alert, with orientation to person, place and time. Behavior, mood, and affect are within normal limits. 02:24 Abdomen/GI: Tenderness to the left upper and right upper quadrant without rebound, guarding, distention. Vital Signs: 00:29 BP 148 / 94; Pulse 79; Resp 15; Temp 98.6; Pulse Ox 99% ; Weight 66.22 kg; Height 4 ft. vc1 11 in. ; Pain 10/10; 01:30 BP 121 / 73; Pulse 54; Resp 15; Pulse Ox 98% ; vc1 02:16 BP 120 / 68; Pulse 60; Resp 16; Pulse Ox 96% ; vc1 00:29 Body Mass Index 29.49 (66.22 kg, 149.86 cm) vc1 00:29 Pain Scale: Adult vc1 MDM: 00:29 Patient medically screened. rt 02:24 Differential diagnosis: Gastritis, pancreatitis, cholecystitis. Data reviewed: vital rt signs, nurses notes, lab test result(s), radiologic studies. I considered the following discharge prescriptions or medication management in the emergency department Medications were administered in the Emergency Department. See MAR. Test considered but Not performed: CT: Patient had recent CT scan which was reportedly normal. Patient clinically does not have an acute appendicitis. Believe that risk of radiation for repeat imaging is greater than the risk of missed surgical pathology.. Counseling: I had a detailed discussion with the patient and/or guardian regarding: the historical points, exam findings, and any diagnostic results supporting the discharge/admit diagnosis, lab results, radiology results, the need for outpatient follow up, to return to the emergency department if symptoms worsen or persist or if there are any questions or concerns that arise at home. 02/14 00:37 Order name: CBC with Diff; Complete Time: 01:38 rt 02/14 00:37 Order name: CMP; Complete Time: 01:38 rt 02/14 00:37 Order name: Lipase; Complete Time: 01:38 rt 02/14 00:37 Order name: Urinalysis w/ reflexes; Complete Time: 01:39 rt 02/14 01:40 Order name: Urine Culture EDMS 02/14 00:37 Order name: US Abdomen Limited rt 02/14 00:37 Order name: IV Saline Lock; Complete Time: 00:57 rt 02/14 00:37 Order name: Labs collected and sent; Complete Time: 00:57 rt Administered Medications: 01:13 Drug: TORadol - Ketorolac IVP 15 mg Route: IVP; Site: left antecubital; vc1 02:18 Follow up: Response: No adverse reaction; Marked relief of symptoms vc1 01:13 Drug: Alum-Mag Hydroxide-Simeth PO Suspension (200 mg-200 mg-20 mg/5 mL) 30 ml Route: vc1 PO; 02:17 Follow up: Response: No adverse reaction; Marked relief of symptoms vc1 01:13 Drug: Pantoprazole IVP 40 mg Route: IVP; Site: left antecubital; vc1 02:17 Follow up: Response: No adverse reaction; Marked relief of symptoms vc1 02:20 Drug: Dicyclomine IM 20 mg Route: IM; Site: right gluteus; vc1 02:27 Follow up: Response: No adverse reaction; Medication administered at discharge. vc1 Disposition Summary: 02/14/23 02:18 Discharge Ordered Location: Home rt Problem: an ongoing problem rt Symptoms: have improved rt Condition: Stable rt Diagnosis - Other gastritis without bleeding rt Followup: rt - With: Salvador Santa MD - When: 2 - 3 days - Reason: Discharge Instructions: - Discharge Summary Sheet rt - Gastritis, Adult rt Forms: - Medication Reconciliation Form rt - Thank You Letter rt - Antibiotic Education rt - Prescription Opioid Use rt - [email or web address] rt Prescriptions: - Carafate 1 gram Oral Tablet - take 1 tablet by ORAL route 4 times per day; 30 tablet; Refills: 0, Product rt Selection Permitted - Protonix 40 mg Oral Tablet - take 1 tablet by ORAL route once daily; 30 tablet; Refills: 0, Product rt Selection Permitted - dicyclomine 20 mg Oral Tablet - take 1 tablet by ORAL route 3 times per day; 15 tablet; Refills: 0, Product rt Selection Permitted Signatures: Dispatcher [facility] Mylene Kaplan RN RN vc1 Anthony Lala MD MD rt
--- NOTE | 2023-02-14 02:19 | ER ---
Nurse's Notes [facility] Name: Yanira Sheffield Age: 37 yrs Sex: Female : 1985 Arrival Date: 02/14/2023 Time: 00:24 Bed 15 Private MD: Diagnosis: Other gastritis without bleeding Presentation: 02/14 00:29 Chief complaint: EMS states: Abdominal pain times 1 week went to [facility] on Thursday and was vc1 discharged with no diagnosis. Last BM yesterday normal, no blood. Coronavirus screen: Vaccine status: Patient reports being unvaccinated. Client denies travel out of the [place] in the last 14 days. At this time, the client does not indicate any symptoms associated with coronavirus-19. Ebola Screen: Patient negative for fever greater than or equal to 101.5 degrees Fahrenheit, and additional compatible Ebola Virus Disease symptoms Patient denies exposure to infectious person. Patient denies travel to an Ebola-affected area in the 21 days before illness onset. No symptoms or risks identified at this time. Initial Sepsis Screen: Does the patient meet any 2 criteria? No. Patient's initial sepsis screen is negative. Does the patient have a suspected source of infection? No. Patient's initial sepsis screen is negative. Risk Assessment: Do you want to hurt yourself or someone else? Patient reports no desire to harm self or others. Onset of symptoms was February 06, 2023. 00:29 Method Of Arrival: EMS: [facility] vc1 00:29 Acuity: DAGMAR 3 vc1 Triage Assessment: 00:33 General: Appears in no apparent distress. Behavior is calm, cooperative, appropriate vc1 for age. Pain: Complains of pain in abdomen Pain does not radiate. Pain currently is 10 out of 10 on a pain scale. Quality of pain is described as stabbing, Pain began a week ago Also complains of decreased appetite. EENT: No deficits noted. No signs and/or symptoms were reported regarding the EENT system. Neuro: Level of Consciousness is awake, alert, obeys commands, Oriented to person, place, time, situation, Appropriate for age. Cardiovascular: No deficits noted. Respiratory: Airway is patent Respiratory effort is even, unlabored, Respiratory pattern is regular, symmetrical. GI: Abd is soft Abdomen is tender to palpation X 4 quads. worse in the upper left quadrant Reports lower abdominal pain, upper abdominal pain, anorexia, epigastric pain. : No deficits noted. No signs and/or symptoms were reported regarding the genitourinary system. Derm: No deficits noted. No signs and/or symptoms reported regarding the dermatologic system. Musculoskeletal: No deficits noted. No signs and/or symptoms reported regarding the musculoskeletal system. 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 - Social history:: Smoking status: Patient denies any tobacco usage or history of. Patient/guardian denies using alcohol. - Family history:: not pertinent, pertinent for. Screenin:35 [facility] ED Fall Risk Assessment (Adult) History of falling in the last 3 months, vc1 including since admission No falls in past 3 months (0 pts) Confusion or Disorientation No (0 pts) Intoxicated or Sedated No (0 pts) Impaired Gait No (0 pts) Mobility Assist Device Used No (0 pt) Altered Elimination No (0 pt) Score/Fall Risk Level 0 - 2 = Low Risk Oriented to surroundings, Maintained a safe environment, Educated pt \T\ family on fall prevention, incl call for assistance when getting out of bed. Abuse screen: Denies threats or abuse. Nutritional screening: Intervention for positive screen: no appetite times 1 week. Tuberculosis screening: No symptoms or risk factors identified. Assessment: 02:17 Reassessment: No changes from previously documented assessment. Patient and/or family vc1 updated on plan of care and expected duration. Pain level reassessed. Patient is alert, oriented x 3, equal unlabored respirations, skin warm/dry/pink. GI: Bowel sounds present X 4 quads. Vital Signs: 00:29 BP 148 / 94; Pulse 79; Resp 15; Temp 98.6; Pulse Ox 99% ; Weight 66.22 kg; Height 4 ft. vc1 11 in. ; Pain 10/10; 01:30 BP 121 / 73; Pulse 54; Resp 15; Pulse Ox 98% ; vc1 02:16 BP 120 / 68; Pulse 60; Resp 16; Pulse Ox 96% ; vc1 00:29 Body Mass Index 29.49 (66.22 kg, 149.86 cm) vc1 00:29 Pain Scale: Adult vc1 ED Course: 00:27 Patient arrived in ED. wm 00:28 Anthony Lala MD is Attending Physician. rt 00:33 Triage completed. vc1 00:35 Arm band placed on right wrist. vc1 00:36 Patient has correct armband on for positive identification. Bed in low position. Call vc1 light in reach. Pulse ox on. NIBP on. 00:57 CBC with Diff Sent. vc1 00:57 CMP Sent. vc1 00:57 Lipase Sent. vc1 01:13 Mylene Ignacio, RAUL is Primary Nurse. vc1 01:31 US Abdomen Limited In Process Unspecified. EDMS 02:17 No provider procedures requiring assistance completed. vc1 02:18 Salvador Santa MD is Referral Physician. rt 02:28 IV discontinued, intact, bleeding controlled, No redness/swelling at site. Pressure vc1 dressing applied. Administered Medications: 01:13 Drug: TORadol - Ketorolac IVP 15 mg Route: IVP; Site: left antecubital; vc1 02:18 Follow up: Response: No adverse reaction; Marked relief of symptoms vc1 01:13 Drug: Alum-Mag Hydroxide-Simeth PO Suspension (200 mg-200 mg-20 mg/5 mL) 30 ml Route: vc1 PO; 02:17 Follow up: Response: No adverse reaction; Marked relief of symptoms vc1 01:13 Drug: Pantoprazole IVP 40 mg Route: IVP; Site: left antecubital; vc1 02:17 Follow up: Response: No adverse reaction; Marked relief of symptoms vc1 02:20 Drug: Dicyclomine IM 20 mg Route: IM; Site: right gluteus; vc1 02:27 Follow up: Response: No adverse reaction; Medication administered at discharge. vc1 Medication: 00:36 VIS not applicable for this client. vc1 Outcome: 02:18 Discharge ordered by . rt 02:27 Discharged to home ambulatory. vc1 02:27 Condition: improved 02:27 Discharge instructions given to patient, Instructed on discharge instructions, follow up and referral plans. medication usage, Demonstrated understanding of instructions, follow-up care, medications, Prescriptions given X 3. 02:28 Patient left the ED. vc1 Signatures: Dispatcher [employer] EDMS Jami Joyce Vanessa, RN RN vc1 Anthony Lala MD MD rt
[2023-02-14] MEDS ORDERED: DICYCLOMINE HCL 20 MG/2 ML AMP IM ONE (02:29)
[2023-02-14 03:56] VITALS: TEMP 98.6
[2023-02-14 04:00] VITALS: BP 120/68; O2SAT 96
--- NOTE | 2023-02-14 23:36 | RAD REPORT ---
EXAM DESCRIPTION: US - Abdomen Exam Limited - 02/14/2023 1:29 am CLINICAL HISTORY: 37 years, Female, RUQ pain COMPARISON: None . TECHNIQUE: Utilizing a curved array transducer, real-time ultrasound evaluation of the abdominal vis cera was performed. Color Doppler imaging was used to assess vascular flow. FINDINGS: The liver demonstrate to be within normal limits. The gallbladder was suboptimal in distention most likely related to lack of fasting. No gallbladder stones were seen. No pericholecystic fluid and or wall thickening was identified. The common abbi e duct measures 3.9 mm. No intra or extrahepatic biliary duct dilatation was identified. The pancreas, kidneys and retroperitoneum was not imaged. IMPRESSION: No acute abnormalities. Electronically signed by: Hamilton Hand MD 02/14/2023 2:05 AM CDT Due to temporary technical issues with the PACS/Fluency reporting system, reports are being signed by the in house radiologists without review as a courtesy to insure prompt reporting. The interpreting radiologist is fully responsible for the content of the report.
== END 2023-02-14 02:28 | disposition home or self-care (01) ==
LOC: ER 00:24
DX: K29.60 Other gastritis without bleeding (principal)
CPT/HCPCS: 36415; 76705; 80053; 81001; 83690; 85025; 87077; 87086; 87088; 87186; 96372; 96374; 96375; 99285; C9113; J0500